=== PATIENT | female | born 1975 | race Hispanic/Latino ===

== ENCOUNTER → 2017-12-06 | Outpatient (CLI) | payer OTHER | END | disposition home or self-care (01) | LOC: RAH 13:59 | DX: N83.201 Unspecified ovarian cyst, right side (principal) | CPT/HCPCS: 76856 ==

== ENCOUNTER → 2018-08-24 | Outpatient (CLI) | payer OTHER | END | disposition home or self-care (01) | LOC: RAH 14:27 | DX: Z12.31 Encounter for screening mammogram for malignant neoplasm of breast (principal) | CPT/HCPCS: 77067 ==

== ENCOUNTER 2018-09-07 05:57 | Day surgery (SDC) | payer OTHER ==
[2018-09-05 10:31] VITALS: BP 169/77
[2018-09-05 11:33] LABS: BASOPHILS % (AUTO) 0.8 % (0.0-5.0); EOSINOPHILS % (AUTO) 3.6 % (0.0-8.0); HEMATOCRIT 29.8 % (36-48); LYMPHOCYTES % (AUTO) 22.2 % (21.0-51.0); MEAN CORPUSCULAR HEMOGLOBIN 30.7 pg (27.0-33.0); MEAN CORPUSCULAR HGB CONC 33.4 g/dL (32.0-36.0); MEAN CORPUSCULAR VOLUME 92.1 fL (79-99); MONOCYTES % (AUTO) 5.5 % (3.0-13.0); NEUTROPHILS % (AUTO) 67.9 % (40.0-77.0); NUCLEATED RED BLOOD CELLS 0.1 % (0.0-0.19); PLATELET COUNT (AUTO) 143 K/uL (130-400); RED BLOOD CELL COUNT(AUTO) 3.24 MIL/uL (4.00-5.50); RED CELL DISTRIBUTION WIDTH 13.6 % (11.0-15.5); WHITE BLOOD COUNT (AUTO) 5.9 K/uL (4.8-10.8)
[2018-09-05 11:57] LABS: CREATININE 9.2 mg/dL (0.5-1.5)
--- NOTE | 2018-09-05 17:14 | NUR ---
ABNORMAL LABS REPORTED ABNORMAL LABS TO DR. NAVA HGB 9.9, HCT 29.8, BUN 110 AND CREATINE 9.2. NO ORDERS REGARDING HGB, HCT. DR. NAVA WANTS LABS REPORTED TO DR. KENT, [employer] [phone]. REGARDING RESULTS. CALLED DR. RIVERA OFFICE. SPOKE TO BONNIE OCONNELL AND FAXED OVER ABNORMAL RESULTS [phone]. DR. KENT WILL CALL BACK WITH ANY ORDERS. PENDING CALL BACK.
--- NOTE | 2018-09-06 09:10 | NUR ---
FOLLOW UP ON LABS FOLLEWED UP WITH DR. KENT- NEPHROLOGISTOFFICE REGARDING CRITICAL LABS REPORTED. PER MACK. NICOLE NO NEW ORDERS GIVEN
[~2018-09-07] VITALS: Ht 160 cm; Wt 80.6 kg
[2018-09-07] VITALS (15 sets, daily range): BP systolic 110–141; BP diastolic 56–78
[~2018-09-07 05:57] MED LIST: AMLO10TA7 PO; ATOR40TA69 PO; AURYXIA PO; CARV25TA PO; DOXA2TAB2 PO; PANT40TA25 PO; SODI650T PO; VITAMIN D3 PO
[2018-09-07] MEDS ORDERED: BUPIVACAINE/EPI/PF 0.5% 30ML VIAL IJ ONE (06:57)
[2018-09-07] MEDS ORDERED: SODIUM CHLORIDE 0.9% 1000ML 1,000 ML IV ONE (07:09)
[2018-09-07] MEDS ORDERED: NEOMY SULF/POLYMYXIN B SULFATE 1 ML AMPUL IR ONE (07:20)
[2018-09-07] MEDS: CEFAZOLIN SODIUM 1 GM VIAL IVP ONE ×2 (07:30→07:56)
--- NOTE | 2018-09-07 07:30 | NUR ---
VALUABLES: CLOTHING, MEDICATIONS AND CELL PHONE GIVEN TO SISTER IN LAW - [place].
[2018-09-07] MEDS ORDERED: LIDOCAINE PF 2% 5ML ABBOJECT ONE (07:31)
[2018-09-07] MEDS ORDERED: DEXAMETHASONE SOD PHOSPHATE 4 MG/ML 1ML VIAL ONE (07:32)
[2018-09-07] MEDS ORDERED: ROCURONIUM 10MG/1ML SYR 10 MG/ML ML ONE (07:32)
[2018-09-07] MEDS ORDERED: FENTANYL CITRATE PF 50 MCG/1 ML 2ML VIAL ONE (07:32)
[2018-09-07] MEDS ORDERED: NEOSTIGMINE 5MG/5ML SYR IV ONE (07:32)
[2018-09-07] MEDS ORDERED: PROPOFOL 10 MG/ML 20ML VIAL IV ONE (07:32)
[2018-09-07] MEDS ORDERED: GLYCOPYRROLATE 1 MG/5 ML SYRINGE ONE (07:32)
[2018-09-07] MEDS ORDERED: LIDOCAINE HCL 4% LTA SOL 4 ML VIAL ONE (07:32)
[2018-09-07] MEDS ORDERED: ONDANSETRON HCL 4 MG/2 ML VIAL ONE (07:33)
[2018-09-07] MEDS ORDERED: IPRATROPIUM/ALBUTEROL SULFATE 3 ML SOLUTION IH ONE (09:03)
== END 2018-09-07 11:00 | disposition home or self-care (01) ==
LOC: DAH 05:57
PROVIDERS: ATTEND Surgery
DX: I12.0 Hypertensive chronic kidney disease with stage 5 chronic kidney disease or end stage renal disease (principal); N18.6 End stage renal disease; D64.9 Anemia, unspecified; Z82.49 Family history of ischemic heart disease and other diseases of the circulatory system; Z83.3 Family history of diabetes mellitus; M32.9 Systemic lupus erythematosus, unspecified; E66.9 Obesity, unspecified; K21.9 Gastro-esophageal reflux disease without esophagitis
CPT/HCPCS: 36415; 49324; 80048; 84702; 85025; 94640; A4218; A4510; A4600; A4649; A4930; A6207; C1752; J0690; J1100; J1644; J2001; J2405; J2704; J2710; J3010; J3490 ×3; J7030

== ENCOUNTER → 2018-09-12 | Outpatient (CLI) | payer OTHER ==
[2018-09-12 09:29] LABS: BASOPHILS % (AUTO) 2.2 % (0.0-5.0); EOSINOPHILS % (AUTO) 2.1 % (0.0-8.0); HEMATOCRIT 28.4 % (36-48); LYMPHOCYTES % (AUTO) 17.9 % (21.0-51.0); MEAN CORPUSCULAR HEMOGLOBIN 30.7 pg (27.0-33.0); MEAN CORPUSCULAR HGB CONC 33.2 g/dL (32.0-36.0); MEAN CORPUSCULAR VOLUME 92.6 fL (79-99); MONOCYTES % (AUTO) 3.5 % (3.0-13.0); NEUTROPHILS % (AUTO) 74.3 % (40.0-77.0); NUCLEATED RED BLOOD CELLS 0.1 % (0.0-0.19); PLATELET COUNT (AUTO) 151 K/uL (130-400); RED BLOOD CELL COUNT(AUTO) 3.07 MIL/uL (4.00-5.50); RED CELL DISTRIBUTION WIDTH 12.9 % (11.0-15.5); WHITE BLOOD COUNT (AUTO) 8.4 K/uL (4.8-10.8)
[2018-09-12 10:50] LABS: ALBUMIN 3.7 g/dL (3.5-5.0); BILIRUBIN,TOTAL 0.6 mg/dL (0.2-1.0); TOTAL PROTEIN, SERUM 7.2 g/dL (6.0-8.3)
[2018-09-12 11:07] LABS: CREATININE 9.5 mg/dL (0.5-1.5)
== END | disposition home or self-care (01) ==
LOC: LAB 08:25
PROVIDERS: ATTEND Internal Medicine
DX: I12.0 Hypertensive chronic kidney disease with stage 5 chronic kidney disease or end stage renal disease (principal); N18.5 Chronic kidney disease, stage 5
CPT/HCPCS: 36415; 80053; 84100; 85025

== ENCOUNTER → 2018-09-30 | Outpatient (CLI) | payer OTHER ==
[2018-09-30 11:12] LABS: APPEARANCE,URINE Clear (CLEAR); BILIRUBIN,URINE Negative (NEGATIVE); COLOR,URINE Yellow (YELLOW); GLUCOSE, URINE (UA) Negative (NEGATIVE); KETONES,URINE Negative (NEGATIVE); LEUKOCYTE ESTERASE ,URINE Large (NEGATIVE); NITRATE,URINE Negative (NEGATIVE); OCCULT BLOOD,URINE Trace (NEGATIVE); PH,URINE 8.5 (5.0-8.0); PROTEIN,URINE 300 (NEGATIVE)
[2018-09-30 11:46] LABS: BACTERIA,URINE Few /HPF (None Seen)
[2018-09-30 11:47] LABS: RBC,URINE 0-1 /HPF (0-1)
== END | disposition home or self-care (01) ==
LOC: LAB 10:03
PROVIDERS: ATTEND Internal Medicine
DX: I13.11 Hypertensive heart and chronic kidney disease without heart failure, with stage 5 chronic kidney disease, or end stage renal disease (principal); N18.6 End stage renal disease; I50.9 Heart failure, unspecified; R30.0 Dysuria
CPT/HCPCS: 81001; 82043; 82570; 87088

== ENCOUNTER 2018-10-11 07:51 | Day surgery (SDC) | payer OTHER ==
[2018-10-07 14:32] LABS: BASOPHILS % (AUTO) 0.8 % (0.0-5.0); EOSINOPHILS % (AUTO) 3.1 % (0.0-8.0); HEMATOCRIT 32.2 % (36-48); LYMPHOCYTES % (AUTO) 17.8 % (21.0-51.0); MEAN CORPUSCULAR HEMOGLOBIN 31.2 pg (27.0-33.0); MEAN CORPUSCULAR HGB CONC 33.9 g/dL (32.0-36.0); MEAN CORPUSCULAR VOLUME 91.8 fL (79-99); MONOCYTES % (AUTO) 4.7 % (3.0-13.0); NEUTROPHILS % (AUTO) 73.6 % (40.0-77.0); NUCLEATED RED BLOOD CELLS 0.1 % (0.0-0.19); PLATELET COUNT (AUTO) 171 K/uL (130-400); RED BLOOD CELL COUNT(AUTO) 3.51 MIL/uL (4.00-5.50); RED CELL DISTRIBUTION WIDTH 13.1 % (11.0-15.5); WHITE BLOOD COUNT (AUTO) 6.7 K/uL (4.8-10.8)
[2018-10-07 14:35] LABS: APPEARANCE,URINE Clear (CLEAR); BILIRUBIN,URINE Negative (NEGATIVE); COLOR,URINE Yellow (YELLOW); GLUCOSE, URINE (UA) Negative (NEGATIVE); KETONES,URINE Negative (NEGATIVE); LEUKOCYTE ESTERASE ,URINE Small (NEGATIVE); NITRATE,URINE Negative (NEGATIVE); OCCULT BLOOD,URINE Trace (NEGATIVE); PH,URINE >=9.0 (5.0-8.0); PROTEIN,URINE 300 (NEGATIVE); UROBILINOGEN,URINE 0.2 mg/dL (0.2-1.0)
[2018-10-07 14:51] LABS: INR 0.98 (0.85-1.15); PROTHROMBIN TIME 10.3 SEC (9.6-11.6)
[2018-10-07 15:03] LABS: BACTERIA,URINE Rare /HPF (None Seen); RBC,URINE None Seen /HPF (0-1)
[2018-10-07 15:21] LABS: POTASSIUM 3.6 mmol/L (3.5-5.1)
[2018-10-07 15:24] VITALS: BP 114/74
[2018-10-07 15:26] LABS: CREATININE 8.9 mg/dL (0.5-1.5)
--- NOTE | 2018-10-07 15:28 | NUR ---
REPORTED CREAT OF 8.9 TO YOANNA AMEZCUA OF DR. NAVA. NO NEW ORDERS OK TO PROCEED.
--- NOTE | 2018-10-10 10:50 | NUR ---
ABNORMAL LABS NOTIFIED GOLDIE BOJORQUEZ OF PT'S UA RESULT, NITRATES NEGATIVE, ULEUKEST SMALL, UWBC 6-10. NO FURTHER ORDERS GIVEN, AWARE OF PT'S BUN/CREAT 65/8.9, RENAL PT.
[2018-10-11] VITALS (9 sets, daily range): BP systolic 101–130; BP diastolic 52–81
[~2018-10-11] VITALS: Ht 160 cm; Wt 82.0 kg
[~2018-10-11 07:51] MED LIST changes: +SODIUM CHLORIDE 0.9% 500ML 500 ML IV SCH
[2018-10-11] MEDS ORDERED: SODIUM CHLORIDE 0.9% 1000ML 1,000 ML IV ONE (08:31)
--- NOTE | 2018-10-11 09:09 | NUR ---
ASSESSMENT PT HERE FOR PROCEDURE. DENIES ANY DISCOMFORT AT THIS TIME. SISTER IN LAW AT BEDSIDE
--- NOTE | 2018-10-11 09:12 | NUR ---
DOES PERITONEAL DIALYSIS- PERFORMS DAILY Addendum: 10/11/18 at 0915 by KARYN GILBERT RN RN Amended: Links added.
[2018-10-11] MEDS ORDERED: LIDOCAINE HCL-MPF 2% 5ML VIAL ONE (13:56)
[2018-10-11] MEDS ORDERED: SODIUM BICARB 50MEQ 50ML VIAL ONE (13:56)
[2018-10-11] MEDS ORDERED: HEPARIN SODIUM 1000UNIT/ML 10ML VIAL ONE ×2 (13:56→14:10)
[2018-10-11] MEDS ORDERED: NITROGLYCERIN 5 MG/ML 10 ML VIAL IV ONE (13:56)
[2018-10-11] MEDS ORDERED: IOHEXOL-350 50ML VIAL IV ONE (13:56)
[2018-10-11] MEDS ORDERED: IOHEXOL-350 75 ML VIAL IV ONE ×2 (13:58→14:20)
--- NOTE | 2018-10-11 14:00 | NUR ---
PROCEDURE PT TAKEN TO PROCEDURE BY ENVIRONMENTAL ENGINEERING AIDE PERSONNEL DREW ALEXANDRA. DENIES ANY PROBLEMS AT THIS TIME.
[2018-10-11] MEDS ORDERED: MIDAZOLAM HCL 1 MG/ML 2ML VIAL ONE ×2 (14:10→14:16)
[2018-10-11] MEDS ORDERED: MEPERIDINE-PF 25 MG/ML SYG ONE ×2 (14:10→14:16)
[2018-10-11] MEDS ORDERED: ACETAMINOPHEN-CODEINE 300/30MG TAB PO PRN ×2 (14:45)
== END 2018-10-11 18:40 | disposition home or self-care (01) ==
LOC: DAH 07:51
PROVIDERS: ATTEND Internal Medicine Cardiovascular Disease
DX: I50.30 Unspecified diastolic (congestive) heart failure (principal); M32.9 Systemic lupus erythematosus, unspecified; M32.14 Glomerular disease in systemic lupus erythematosus; N18.5 Chronic kidney disease, stage 5; E78.00 Pure hypercholesterolemia, unspecified; Z79.899 Other long term (current) drug therapy; Z98.890 Other specified postprocedural states; Z83.3 Family history of diabetes mellitus; Z68.31 Body mass index [BMI] 31.0-31.9, adult; Z88.8 Allergy status to other drugs, medicaments and biological substances
CPT/HCPCS: 36415; 71045; 80048; 81001; 85025; 85610; 85730; 93005; 93458; A4606; C1760; C1894; J1644 ×2; J2175 ×2; J2250 ×2; J3490 ×3; J7030; Q9967 ×2; 99156; 99157

== ENCOUNTER → 2019-03-06 | Outpatient (CLI) | payer OTHER, MEDICARE ==
[~2019-03-06] MED LIST changes: -SODIUM CHLORIDE 0.9% 500ML 500 ML IV SCH
== END | disposition home or self-care (01) ==
LOC: RAH 11:35
PROVIDERS: ATTEND Internal Medicine
DX: I12.0 Hypertensive chronic kidney disease with stage 5 chronic kidney disease or end stage renal disease (principal); N18.6 End stage renal disease; R16.0 Hepatomegaly, not elsewhere classified
CPT/HCPCS: 76700

== ENCOUNTER → 2019-04-19 | Outpatient (CLI) | payer OTHER, MEDICARE | END | disposition home or self-care (01) | LOC: RAH 16:24 | PROVIDERS: ATTEND Transplant Surgery | DX: Z01.818 Encounter for other preprocedural examination (principal) | CPT/HCPCS: 71046; 93005 ==

== ENCOUNTER → 2019-08-28 | Outpatient (CLI) | payer OTHER, MEDICARE | END | disposition home or self-care (01) | LOC: RAH 09:59 | PROVIDERS: ATTEND Internal Medicine | DX: Z12.31 Encounter for screening mammogram for malignant neoplasm of breast (principal) | CPT/HCPCS: 77067 ==

== ENCOUNTER → 2020-08-29 | Outpatient (CLI) | payer OTHER, MEDICARE ==
[~2020-08-29] MED LIST changes: +AMLO-258 PO; -AMLO10TA7 PO; -PANT40TA25 PO; +PANT40TA54 PO
== END | disposition home or self-care (01) ==
LOC: LAB 07:38
PROVIDERS: ATTEND Internal Medicine
DX: N39.0 Urinary tract infection, site not specified (principal)
CPT/HCPCS: 87077; 87088; 87186

== ENCOUNTER → 2020-09-13 | Outpatient (CLI) | payer OTHER, MEDICARE | END | disposition home or self-care (01) | LOC: LAB 09:01 | PROVIDERS: ATTEND Internal Medicine | DX: N39.0 Urinary tract infection, site not specified (principal) | CPT/HCPCS: 87077; 87088; 87186 ==

== ENCOUNTER → 2022-09-28 | Outpatient (CLI) | payer BC | END | disposition home or self-care (01) | LOC: RAH 08:04 | PROVIDERS: ATTEND Internal Medicine | DX: Z12.31 Encounter for screening mammogram for malignant neoplasm of breast (principal) | CPT/HCPCS: 77067 ==

== ENCOUNTER → 2023-10-01 | Outpatient (CLI) | payer BC | END | disposition home or self-care (01) | LOC: RAH 07:09 | PROVIDERS: ATTEND Internal Medicine | DX: Z12.31 Encounter for screening mammogram for malignant neoplasm of breast (principal) | CPT/HCPCS: 77067 ==

== ENCOUNTER → 2024-10-04 | Outpatient (CLI) | payer BC ==
--- NOTE | 2024-10-04 09:09 | HMCIMG ---
Exam Type: MAMMO SCREENING BILATERAL Clinical Information: ANNUAL SCREENING Comparison: October 01, 2023 Technique: Mammogram with CAD was performed with CC and MLO projections. CAD shows no worrisome regions. FINDINGS: The breasts are heterogeneously dense, which may obscure small masses. No dominant mass or suspicious microcalcification identified. There is no nipple retraction or skin thickening. Benign-appearing calcifications are seen. CAD shows no worrisome regions. IMPRESSION: 1. No mammographic signs of malignancy. 2. Routine follow-up recommended. CATEGORY 2: BENIGN FINDINGS Note: A negative x-ray should not delay biopsy if a dominant or clinically suspicious mass is present, since 8-10% of cancers are not identified by mammography. Dense breasts may obscure an underlying neoplasm.
== END | disposition home or self-care (01) ==
LOC: RAH 07:52
PROVIDERS: ATTEND Internal Medicine
DX: Z12.31 Encounter for screening mammogram for malignant neoplasm of breast (principal); R92.333 Mammographic heterogeneous density, bilateral breasts
CPT/HCPCS: 77067

== ENCOUNTER 2025-08-29 13:17 | Emergency (ER) | payer BC ==
[~2025-08-29] VITALS: Ht 160 cm; Wt 84.8 kg
[2025-08-29 13:22] VITALS: BP 122/68; PULSE 62; RESP 18; TEMP 98.2
--- NOTE | 2025-08-29 14:10 | NUR ---
ANATOLIY MACE NOW PLACED IN MY ED [facility] [place]
--- NOTE | 2025-08-29 14:12 | NUR ---
IBUPROFEN HELD. PATIENT STATES CANT TAKE IT DUE TO RENAL TRANSPLANT.
--- NOTE | 2025-08-29 14:13 | ERN ---
ED Note History of Present Illness Stated Complaint: ANKLE PAIN Chief Complaint: Ankle Problem Time Seen by MD: 13:24 Time Seen by Midlevel: 13:25 Dictation: 50-year-old female presents to the emergency department due to reported having sustained a fall outside her house yesterday due to having tripped over a water hose. The patient states that an x-ray was done at home and was advised that she had a fracture of the ankle. She states that she got a call from her PCP requesting for her to come to the emergency department for treatment. At this time, she rates her pain level as a 7/10. The patient states the pain primarily worsens when she attempts to bear weight on the right ankle. Upon initial evaluation, the patient presents with a normal neurovascular examination Allergies: Coded Allergies: hydralazine (Unverified Allergy, Unknown, PALPITATIONS, 09/05/18) sulfamethoxazole (Unverified Allergy, Unknown, RASH, 09/05/18) trimethoprim (Unverified Allergy, Unknown, RASH, 09/05/18) Emergency Care ADMISSIONS EVALUATOR: None Home Meds Reported Medications [Vitamin D3] No Conflict Check, 50 MCG PO AM 09/05/18 Carvedilol (Carvedilol) 25 Mg Tablet, 25 MG PO BID, TAB 09/05/18 Doxazosin Mesylate (Doxazosin Mesylate) 2 Mg Tablet, 2 MG PO HS, TAB 09/05/18 Atorvastatin Calcium (LIPITOR) 40 Mg Tablet, 40 MG PO AM, TAB 09/05/18 Amlodipine Besylate (Amlodipine Besylate) 10 Mg Tablet, 10 MG PO AM, TAB 09/05/18 Pantoprazole Sodium (Pantoprazole Sodium) 40 Mg Tablet.dr, 40 MG PO QODAY, TAB 09/05/18 Sodium Bicarbonate (Sodium Bicarbonate) 650 Mg Tablet, 650 MG PO TID, TAB 09/05/18 [Auryxia] No Conflict Check, 210 MG PO TID 09/05/18 Past Medical History Past Medical History: Hypertension, Renal Failure Additional Past Medical Hx: LUPUS, S/P KIDNEY TRANSPLANT Surgical History: Other Surgical History Other: KIDNEY TRANSPLANT PSYCH History: no pertinent psych hx History: Not Applicable RN Note Reviewed/Agreed w/PFSH: Yes Review of System Dictation MS/Extremity: Right ankle pain Initial Vital Sign VS Vital Signs Date Time Temp Pulse Resp B/P (MAP) Pulse Ox O2 Delivery O2 Flow Rate FiO2 08/29/25 13:22 98.2 62 18 122/68 99 Room Air 0 Physical Exam Dictation General: awake, alert, NAD Head/Face: Normocephalic, atraumatic Eyes: PERRL, EOMI ENT: Oral mucosa moist Neck: Trachea midline, supple Cardiovascular: RRR, no edema Respiratory: Symmetrical, non-labored Abdomen: Soft, non-tender, non-distended, no guarding. Skin: Warm, dry, good turgor, no rash MS/Extremity: Painful range of motion, swelling, tenderness and ecchymosis of the right ankle. Normal neurovascular examination for Neuro: COAx4, GCS 15, steady gait, Psych: Normal behavior, mood, and affect normal Results (Laboratory/Radiology) X-RAY Comment: Three-view x-ray of the right ankle with a bimalleolar fracture external as interpreted by me. ED Course ED Course Orders Procedure Category Date Status Time Ankle Comp 3vws Rt RAD 08/29/25 Taken 14:04 Ibuprofen 800 Mg Tab PHA 08/29/25 Complete (Motrin) 14:30 Ibuprofen 800 Mg Tab PHA 08/29/25 Complete (Motrin) 14:09 Current Medications Medications (Trade) Dose Ordered Sig/Arabella Route PRN Reason Start Time Stop Time Status Last Admin Dose Admin Ibuprofen (moTRIN) 800 mg ONCE ONCE PO 08/29/25 14:30 08/29/25 14:08 DC Ibuprofen (moTRIN) 800 mg STK-MED ONCE .ROUTE 08/29/25 14:09 08/29/25 14:09 DC Vital Signs Date Time Temp Pulse Resp B/P (MAP) Pulse Ox O2 Delivery O2 Flow Rate FiO2 08/29/25 13:22 98.2 62 18 122/68 99 Room Air 0 Medical Decision Making MDM MDM: Differential diagnosis: Right ankle sprain, right ankle pain, bimalleolar fracture of the right ankle. Rationale: Tests considered and ordered secondary to shared decision making include: Previous outside records reviewed: Old ER visits. Risk of complication and/or morbidity or mortality of patient management: None Medications-Per medication reconciliation Need for hospitalization: Patient does not meet criteria for hospitalization. Need for emergency major/minor surgery: No There are no social concerns with this patient. Prescription drug management Prescriptions will include symptomatic care Patient's prior external medical records from other ER visits were reviewed by me as indicated. Prior testing and results from previous visits were reviewed. Prior tests were taken into account with medical decision making and resource utilization, independent historian/historians were used to obtain complete medical history. I independently interpreted the test that were performed, results were reviewed by me and considered findings on radiology if ordered. Medical management and examination interpretation discussions were had by me with other qualified healthcare professionals as indicated for the patient's care. Application of a posterior and a stirrup splint to the right ankle per nursing personnel under my supervision for which the patient tolerated well. Normal neurovascular pulse examination. DX & DISP Disposition: Discharge Departure Impression: Primary Impression: Bimalleolar fracture of right ankle Condition: Stable Referrals: ADDI RUIZ MD (PCP) RAE ORTIZ MD Time of Disposition: 14:45 AUGUSTA MARTINEZ HOME ORGANIZER Aug 29, 2025 14:13
--- NOTE | 2025-08-29 14:48 | HMCIMG ---
EXAM: CR right ankle, 3 View. CLINICAL HISTORY: pain COMPARISON: None provided. FINDINGS: Mildly displaced oblique fracture of the distal fibula. Mildly displaced fracture of the medial malleolus. Suspected nondisplaced fracture of the posterior malleolus. The ankle mortise remains congruent, and subtalar and visualized midfoot joints are anatomically aligned. Marked soft tissue swelling about the ankle. IMPRESSION: 1. Mildly displaced bimalleolar ankle fracture with suspected nondisplaced posterior malleolar involvement. 2. Marked soft tissue swelling about the ankle. /[place]
[2025-09-07] MEDS ORDERED: CARV6.25 PO (10:18)
[2025-09-07] MEDS ORDERED: NIFE90TA65 PO (10:18)
[2025-09-07] MEDS ORDERED: PANT40TA54 PO (10:18)
[2025-09-07] MEDS ORDERED: [UNRECOGNIZED DRUG - OTHER] PO (10:18)
[2025-09-07] MEDS ORDERED: MYCO250C7 PO (10:18)
[2025-09-07] MEDS ORDERED: LOSA25TA41 PO (10:18)
[2025-09-07] MEDS ORDERED: PRED5TAB PO (10:20)
[2025-09-07] MEDS ORDERED: MAGN400C PO (10:20)
[2025-09-07] MEDS ORDERED: POTA-202 PO (10:20)
[2025-09-07] MEDS ORDERED: TACR0.5C7 PO (10:20)
== END 2025-08-29 15:13 | disposition home or self-care (01) ==
LOC: EDH 13:17
DX: S82.841A Displaced bimalleolar fracture of right lower leg, initial encounter for closed fracture (principal); I10 Essential (primary) hypertension; Z88.1 Allergy status to other antibiotic agents; Z88.2 Allergy status to sulfonamides; Z79.899 Other long term (current) drug therapy; Z94.0 Kidney transplant status; W18.09XA Striking against other object with subsequent fall, initial encounter; Y93.89 Activity, other specified; Y92.89 Other specified places as the place of occurrence of the external cause; Y99.8 Other external cause status
CPT/HCPCS: 29125; 29515; 73610; 99283